=== PATIENT | male | born 1970 | race Caucasian/White ===

== ENCOUNTER 2018-04-27 07:29 | Emergency (ER) | payer BC ==
[2018-04-27 07:34] VITALS: RESP 18; TEMP 98.6
[2018-04-27] MEDS ORDERED: Magnesium Citrate Oral SOL (300 ml) PO ONE (08:18)
[2018-04-27] MEDS ORDERED: Magnesium Citrate Oral SOL (300 ml) ONE (08:25)
--- NOTE | 2018-04-27 08:29 | C.PDOC ---
History Of Present Illness 47-year-old male, presents to the emergency department with complaints of sensation of bloating and pain to abdomen. Patient states pain was initially upper left quadrant, but now it is more diffuse, after drinking soda last night to relieve "gas". Pain is described as 8/10, constant and crampy in nature. States he moves bowels regularly. he denies fever, chills, nausea/vomiting, chest pain, or any other associated symptoms. No other complaints at this time. Time Seen by Provider: 04/27/18 07:36 Chief Complaint (Nursing): Abdominal Pain History Per: Patient History/Exam Limitations: no limitations Current Symptoms Are (Timing): Still Present Severity: Moderate Pain Scale Rating Of: 8 Location Of Pain/Discomfort: Diffuse, LUQ Quality Of Discomfort: Cramping Past Medical History Reviewed: Historical Data, Nursing Documentation, Vital Signs Vital Signs: Last Vital Signs Temp 98.6 F 04/27/18 07:31 Pulse 95 H 04/27/18 08:35 Resp 18 04/27/18 08:35 BP 156/95 H 04/27/18 08:35 Pulse Ox 100 04/27/18 09:03 Family History: States: No Known Family Hx - Social History Hx Alcohol Use: No Hx Substance Use: No Physical Exam - Physical Exam Appears: Non-toxic, No Acute Distress Skin: Normal Color, Warm, Dry, No Rash Head: Atraumatic, Normacephalic Eye(s): bilateral: Normal Inspection Nose: Normal Oral Mucosa: Moist Lips: Normal Appearing Neck: Normal ROM Chest: Symmetrical Cardiovascular: Rhythm Regular, No Murmur Respiratory: Normal Breath Sounds, No Accessory Muscle Use Gastrointestinal/Abdominal: Soft, No Tenderness, No Guarding, No Rebound Extremity: Normal ROM, No Deformity, No Swelling Neurological/Psych: Oriented x3, Normal Speech ED Course And Treatment O2 Sat by Pulse Oximetry: 100 (RA) Pulse Ox Interpretation: Normal Medical Decision Making Medical Decision Making: Plan: * X-Ray abdomen, Flat plate * Reassess and Disposition Pt XR reveals retained stool. Will order enema and mag citrate. Disposition Counseled Patient/Family Regarding: Diagnosis, Need For Followup, Rx Given - Disposition Disposition: HOME/ ROUTINE Disposition Time: 08:30 Condition: STABLE Prescriptions: Magnesium Citrate [Citrate of Mag] 300 ml PO ONCE #1 bottle Phosphate Enema [Fleet Enema 135 Ml] 30 ml RC ONCE #1 nma Instructions: Constipation, Adult (DC) Forms: [facility] (Vietnamese), Work Excuse - POA Present On Arrival: None - Clinical Impression Clinical Impression: Abdominal pain, Constipation - Scribe Statement The provider has reviewed the documentation as recorded by the Scribe (Candice schulte) All medical record entries made by the Scribe were at my direction and personally dictated by me. I have reviewed the chart and agree that the record accurately reflects my personal performance of the history, physical exam, medical decision making, and the department course for this patient. I have also personally directed, reviewed, and agree with the discharge instructions and disposition.
[2018-04-27 08:38] VITALS: BP 156/95; PULSE 95
[2018-04-27 08:50] VITALS: O2SAT 100
--- NOTE | 2018-04-27 10:10 | RAD ---
Date of service: 04/27/2018 PROCEDURE: Radiographs of the chest and abdomen (obstructive series) HISTORY: abdominal pain COMPARISON: No prior. TECHNIQUE: AP radiograph of the chest, with upright and supine radiographs of the abdomen. FINDINGS: CHEST: Lungs: Clear. Cardiovascular: Normal size heart. No pulmonary vascular congestion. Pleura: No pleural fluid. No pneumothorax. Other findings: None. ABDOMEN AND PELVIS: Bowel: Unremarkable bowel gas pattern. No evidence of mechanical obstruction. Free air: None. Bones: Unremarkable. Other findings: None. IMPRESSION: Unremarkable radiographs of chest and abdomen. No evidence of mechanical bowel obstruction.
== END 2018-04-27 08:38 | disposition home or self-care (01) ==
LOC: C.ER 07:29
DX: K59.00 Constipation, unspecified (principal); R10.12 Left upper quadrant pain